=== PATIENT | female | born 1945 | race Caucasian/White ===

== ENCOUNTER 2022-01-06 17:52 | Observation (INO) | payer MEDICARE, BC ==
[2022-01-06] MEDS ORDERED: Sodium Chloride 0.9% 1000 ML 1,000 ML IV STA (18:07)
[2022-01-06] MEDS ORDERED: Sodium Chloride 0.9% 1000 ML 1,000 ML ONE (18:27)
--- NOTE | 2022-01-06 18:32 | ERPHSYRPT ---
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 She went walking on the [place] and found she had extremely low levels of energy and felt that she was getting sick. She has spent the last few days primarily laying down and sleeping excessively. She has had no nausea or vomiting but yesterday started diarrhea. She is also had a fever to 101.3 at home. She has had a cough especially in the morning but denies any sore throat the did find her blood pressure slightly elevated at home once she says she has had fever chills and sweats no nausea no vomiting but some diarrhea. (JERE CHIN) Allergies/Adverse Reactions: No Known Drug Allergies Allergy (Verified 01/06/22 18:14) Home Medications: Alendronate Sodium 70 mg [Fosamax 70 MG] 70 mg PO WEEKLY 01/06/22 [History] Travel Risk - International Travel Have you traveled outside of the country in past 3 weeks: No - Coronavirus Screening Are you exhibiting any of the following symptoms?: Yes Symptoms: Vomiting/Diarrhea - Vaccine Status Have you recieved a Covid-19 vaccination: Yes [employer]: [employer] - Vaccination Dates Date of 2cond Vaccination (if applicable): 12/2020 <JERE CHIN - Last Filed: 01/06/22 18:42> - Review of Systems Constitutional: Fever, Chills, Fatigue, Lethargy, Malaise, Night Sweats, Weakness Eyes: No Symptoms Ears, Nose, & Throat: No Symptoms Respiratory: Cough, No Dyspnea Cardiac: No Chest Pain, No Edema, No Syncope Abdominal/Gastrointestinal: Diarrhea, No Abdominal Pain, No Nausea, No Vomiting Genitourinary Symptoms: No Dysuria Musculoskeletal: No Back Pain, No Neck Pain Skin: No Rash Neurological: Lethargy, No Dizziness, No Focal Weakness, No Sensory Changes Psychological: No Symptoms Endocrine: No Symptoms All Other Systems: Reviewed and Negative <JERE CHIN Filed: 01/06/22 18:42> - Past Medical History Pertinent Past Medical History: No Other Medical History: OSTEOPENIA - Past Surgical History Past Surgical History: No - Social History Smoking Status: Never smoker Exposure to second hand smoke: No Drug Use: none Patient Lives Alone: No <ALINEMARKJERE Filed: 01/06/22 18:42> - Physical Exam General Appearance: mild distress, alert Eye Exam: PERRL/EOMI ENT Exam: normal ENT inspection, No pharyngeal erythema, No tonsillar exudate Neck Exam: supple, full range of motion, No meningismus Respiratory Exam: normal breath sounds, lungs clear, no respiratory distress Cardiovascular/Chest Exam: normal heart sounds, regular rate/rhythm, No murmur, No edema Gastrointestinal/Abdominal Exam: soft, non tender, no distention Extremity Exam: non-tender, normal range of motion, normal inspection, normal capillary refill Neurologic Exam: alert, oriented x 3, cooperative, blacking wheel tender II-XII nml as tested, normal mood/affect, sensation nml, No motor deficits Skin Exam: normal color, warm, dry, No rash SpO2 Interpretation: normal SpO2: 97 O2 Delivery: Room Air <ALINEMARKJERE Filed: 01/06/22 18:42> - Nursing Vital Signs Nursing Vital Signs: Initial Vital Signs Temperature 98.4 F 01/06/22 17:58 Pulse Rate 71 01/06/22 17:58 Blood Pressure 150/80 01/06/22 17:58 O2 Sat by Pulse Oximetry 97 01/06/22 17:58 Pain Scale Pain Intensity 0 - Course Nursing assessment & vital signs reviewed: Yes EKG Interpreted by Me: RATE (68), Sinus Rhythm, NORMAL AXIS, NORMAL INTERVALS, NORMAL QRS, NORMAL ST-T - Radiology Exams Chest X-ray Interpretation: Interpreted by me, Other (No definite acute processes identified) <GIUSEPPEJERE - Last Filed: 01/06/22 18:42> Ordered Tests: Active Orders 24 hr Category Date Time Status EKG-ER Only STAT Care 01/06/22 18:07 Active IV Insertion STAT Care 01/06/22 18:07 Active ABDOMEN AND PELVIS W CONTRAST [CT] Stat Exams 01/06/22 18:07 Taken CHEST 1 VIEW (PORTABLE) Stat Exams 01/06/22 18:45 Taken AMYLASE Stat Lab 01/06/22 18:35 Completed BLOOD CULTURE Stat Lab 01/06/22 18:37 Received CBC W DIFF Stat Lab 01/06/22 18:35 Results CMP Stat Lab 01/06/22 18:35 Completed CULTURE,URINE Stat Lab 01/06/22 18:16 Received LIPASE Stat Lab 01/06/22 18:35 Completed Lactic Acid Stat Lab 01/06/22 18:23 Completed Manual Differential NC Stat Lab 01/06/22 18:35 Results [place] Screen Stat Lab 01/06/22 18:37 Completed PROCALCITONIN Stat Lab 01/06/22 18:37 Completed PROTIME WITH INR Stat Lab 01/06/22 18:35 Completed Pathologist Review Stat Lab 01/06/22 18:35 Results TROPONIN Q3H Lab 01/06/22 18:35 Completed TROPONIN Q3H Lab 01/06/22 21:15 Ordered TROPONIN Q3H Lab 01/07/22 00:15 Ordered TROPONIN Q3H Lab 01/07/22 03:15 Ordered TROPONIN Q3H Lab 01/07/22 06:15 Ordered Transfer Order Routine Transfer 01/06/22 Ordered Medication Summary Discontinued Medications Generic Name Dose Route Start Last Admin Trade Name Sacha PRN Reason Stop Dose Admin Sodium Chloride 1,000 mls @ 999 mls/hr 01/06/22 18:07 01/06/22 18:30 Sodium Chloride 0.9% 1000 Ml IV 01/06/22 19:07 999 mls/hr .Q1H1M STA Administration Sodium Chloride Confirm 01/06/22 18:27 Sodium Chloride 0.9% 1000 Ml Administered 01/06/22 18:28 Dose 1,000 mls @ ud .ROUTE .STK-MED ONE Lab/Rad Data: Laboratory Result Diagrams 01/06/22 18:35 01/06/22 18:35 Laboratory Results 01/06/22 01/06/22 01/06/22 Range/Units 18:37 18:37 18:35 WBC (4.0-10.5) K/mm3 RBC (4.1-5.4) M/mm3 Hgb (12.0-16.0) gm/dl Hct (35-47) % MCV (78-100) fl MCH (26-32) pg MCHC (32-36) g/dl RDW (11.5-14.0) % Plt Count (150-450) K/mm3 MPV (7.5-11.0) fl Segmented Neutrophils (36.0-66.0) % Band Neutrophils (0.0-2.0) % Lymphocytes (Manual) (24-44) % Monocytes (Manual) (0.0-12.0) % Atypical Lymphocytes % Platelet Estimate (NORMAL) RBC Morphology Smear Path Review PT (9.4-12.5) SECONDS INR (0.8-3.0) Sodium (137-145) mmol/L Potassium (3.5-5.1) mmol/L Chloride (98-107) mmol/L Carbon Dioxide (22-30) mmol/L Anion Gap (5-15) MEQ/L BUN (7-17) mg/dL Creatinine (0.52-1.04) mg/dL Estimated GFR ML/MIN Glucose (74-106) mg/dL Lactic Acid (0.4-2.0) Calcium (8.4-10.2) mg/dL Total Bilirubin (0.2-1.3) mg/dL AST (14-36) U/L ALT (0-35) U/L Alkaline Phosphatase (38-126) U/L Troponin I < 0.012 (0.000-0.034) ng/mL Serum Total Protein (6.3-8.2) g/dL Albumin (3.5-5.0) g/dL Amylase (30-110) U/L Lipase (23-300) U/L Procalcitonin 0.504 H (0.030-0.080) ng/mL Urinalys Dipstick Clnc Urine Color (YELLOW) Urine Appearance (CLEAR) Urine pH (5-6) Ur Specific [place] (1.005-1.025) POC Urine Protein Conf (Negative) Urine Ketones (NEGATIVE) Urine Nitrite (NEGATIVE) Urine Bilirubin (NEGATIVE) Urine Urobilinogen (0-1) mg/dL Urine Leukocytes (NEGATIVE) Urine WBC (Auto) (0-5) /HPF Urine RBC (Auto) (0-2) /HPF U Epithel Cells (Auto) (FEW) /HPF Urine Bacteria (Auto) (NEGATIVE) /HPF Urine RBC (0-5) Emmanuel/ul Other Casts (Auto) (NEGATIVE) /LPF Urine Mucus (Auto) (NEGATIVE) /HPF Ur Culture Indicated? Urine Glucose (NEGATIVE) mg/dL Monoscreen NEGATIVE (Negative) Influenza Type A Ag (NEGATIVE) Influenza Type B Ag (NEGATIVE) RSV (PCR) (Negative) SARS-CoV-2 (PCR) (NEGATIVE) 01/06/22 01/06/22 01/06/22 Range/Units 18:35 18:35 18:35 WBC 2.2 L (4.0-10.5) K/mm3 RBC 4.49 (4.1-5.4) M/mm3 Hgb 14.3 (12.0-16.0) gm/dl Hct 42.4 (35-47) % MCV 94.4 (78-100) fl MCH 31.8 (26-32) pg MCHC 33.7 (32-36) g/dl RDW 12.1 (11.5-14.0) % Plt Count 41 L (150-450) K/mm3 MPV 11.7 H (7.5-11.0) fl Segmented Neutrophils 45 (36.0-66.0) % Band Neutrophils 27 H (0.0-2.0) % Lymphocytes (Manual) 21 L (24-44) % Monocytes (Manual) 4 (0.0-12.0) % Atypical Lymphocytes 3 % Platelet Estimate DECREASED (NORMAL) RBC Morphology NORMAL Smear Path Review Pending PT 11.7 (9.4-12.5) SECONDS INR 0.99 (0.8-3.0) Sodium 136 L (137-145) mmol/L Potassium 4.8 (3.5-5.1) mmol/L Chloride 99 (98-107) mmol/L Carbon Dioxide 30 (22-30) mmol/L Anion Gap 12.6 (5-15) MEQ/L BUN 22 H (7-17) mg/dL Creatinine 1.13 H (0.52-1.04) mg/dL Estimated GFR 50.0 ML/MIN Glucose 112 H (74-106) mg/dL Lactic Acid (0.4-2.0) Calcium 8.5 (8.4-10.2) mg/dL Total Bilirubin 0.60 (0.2-1.3) mg/dL AST 67 H (14-36) U/L ALT 31 (0-35) U/L Alkaline Phosphatase 62 (38-126) U/L Troponin I (0.000-0.034) ng/mL Serum Total Protein 6.7 (6.3-8.2) g/dL Albumin 3.9 (3.5-5.0) g/dL Amylase 52 (30-110) U/L Lipase 194 (23-300) U/L Procalcitonin (0.030-0.080) ng/mL Urinalys Dipstick Clnc Urine Color (YELLOW) Urine Appearance (CLEAR) Urine pH (5-6) Ur Specific [place] (1.005-1.025) POC Urine Protein Conf (Negative) Urine Ketones (NEGATIVE) Urine Nitrite (NEGATIVE) Urine Bilirubin (NEGATIVE) Urine Urobilinogen (0-1) mg/dL Urine Leukocytes (NEGATIVE) Urine WBC (Auto) (0-5) /HPF Urine RBC (Auto) (0-2) /HPF U Epithel Cells (Auto) (FEW) /HPF Urine Bacteria (Auto) (NEGATIVE) /HPF Urine RBC (0-5) Emmanuel/ul Other Casts (Auto) (NEGATIVE) /LPF Urine Mucus (Auto) (NEGATIVE) /HPF Ur Culture Indicated? Urine Glucose (NEGATIVE) mg/dL Monoscreen (Negative) Influenza Type A Ag (NEGATIVE) Influenza Type B Ag (NEGATIVE) RSV (PCR) (Negative) SARS-CoV-2 (PCR) (NEGATIVE) 01/06/22 01/06/22 01/06/22 Range/Units 18:24 18:23 18:16 WBC (4.0-10.5) K/mm3 RBC (4.1-5.4) M/mm3 Hgb (12.0-16.0) gm/dl Hct (35-47) % MCV (78-100) fl MCH (26-32) pg MCHC (32-36) g/dl RDW (11.5-14.0) % Plt Count (150-450) K/mm3 MPV (7.5-11.0) fl Segmented Neutrophils (36.0-66.0) % Band Neutrophils (0.0-2.0) % Lymphocytes (Manual) (24-44) % Monocytes (Manual) (0.0-12.0) % Atypical Lymphocytes % Platelet Estimate (NORMAL) RBC Morphology Smear Path Review PT (9.4-12.5) SECONDS INR (0.8-3.0) Sodium (137-145) mmol/L Potassium (3.5-5.1) mmol/L Chloride (98-107) mmol/L Carbon Dioxide (22-30) mmol/L Anion Gap (5-15) MEQ/L BUN (7-17) mg/dL Creatinine (0.52-1.04) mg/dL Estimated GFR ML/MIN Glucose (74-106) mg/dL Lactic Acid 1.2 (0.4-2.0) Calcium (8.4-10.2) mg/dL Total Bilirubin (0.2-1.3) mg/dL AST (14-36) U/L ALT (0-35) U/L Alkaline Phosphatase (38-126) U/L Troponin I (0.000-0.034) ng/mL Serum Total Protein (6.3-8.2) g/dL Albumin (3.5-5.0) g/dL Amylase (30-110) U/L Lipase (23-300) U/L Procalcitonin (0.030-0.080) ng/mL Urinalys Dipstick Clnc MAIN LAB Urine Color YELLOW (YELLOW) Urine Appearance CLEAR (CLEAR) Urine pH 5.5 (5-6) Ur Specific [place] 1.015 (1.005-1.025) POC Urine Protein Conf 30 (Negative) Urine Ketones NEGATIVE (NEGATIVE) Urine Nitrite NEGATIVE (NEGATIVE) Urine Bilirubin NEGATIVE (NEGATIVE) Urine Urobilinogen 0.2 (0-1) mg/dL Urine Leukocytes NEGATIVE (NEGATIVE) Urine WBC (Auto) 3-5 (0-5) /HPF Urine RBC (Auto) 0-2 (0-2) /HPF U Epithel Cells (Auto) NONE (FEW) /HPF Urine Bacteria (Auto) NONE SEEN (NEGATIVE) /HPF Urine RBC SMALL (0-5) Emmanuel/ul Other Casts (Auto) 2-5 (NEGATIVE) /LPF Urine Mucus (Auto) SLIGHT (NEGATIVE) /HPF Ur Culture Indicated? YES Urine Glucose NEGATIVE (NEGATIVE) mg/dL Monoscreen (Negative) Influenza Type A Ag NEGATIVE (NEGATIVE) Influenza Type B Ag NEGATIVE (NEGATIVE) RSV (PCR) NEGATIVE (Negative) SARS-CoV-2 (PCR) NEGATIVE (NEGATIVE) - Progress Progress: unchanged <ALINEMARKJERE - Last Filed: 01/06/22 18:42> - Progress Counseled pt/family regarding: lab results, diagnosis, need for follow-up, rad r esults <AV ALFRED - Last Filed: 01/06/22 20:44> - Progress Progress Note: 01/06/22 20:06 CAT scan of the abdomen pelvis without contrast shows no acute abdominal or pelvic abnormality. 01/06/22 20:36 Medical decision making: This patient has leukopenia and thrombocytopenia. She has malaise and is fatigued. She now reports that mid December 2021 she had a tick bite on her left posterior calf. We will order a Lyme's test. We will place her on doxycycline if Lyme test results positive. We will repeat labs in the morning. I spoke with Dr. Herr and we will place her in observation. He wishes to hold any antibiotics at this time. 01/06/22 20:40 (AV ALFRED) - Departure Departure Disposition: Home Critical Care Time: No <JERE CHIN - Last Filed: 01/06/22 18:42> - Departure Departure Disposition: Observation <AV ALFRED - Last Filed: 01/06/22 20:44> - Departure Clinical Impression: Diarrhea, Leukopenia, Thrombocytopenia Condition: Stable Referrals: JOSE F SANDHU NP [Primary Care Provider] - Follow up/PCP as directed
[2022-01-06 18:41] LABS: Hematocrit 42.4 % (35-47); Hemoglobin 14.3 gm/dl (12.0-16.0); Mean Cell Volume 94.4 fl (78-100); Mean Corpuscular Hemoglobin 31.8 pg (26-32); Mean Corpuscular Hgb Concent. 33.7 g/dl (32-36); Mean Platelet Volume 11.7 fl (7.5-11.0); Platelet Count 41 K/mm3 (150-450); Red Blood Count 4.49 M/mm3 (4.1-5.4); Red Cell Distribution Width 12.1 % (11.5-14.0); White Blood Count 2.2 K/mm3 (4.0-10.5)
[2022-01-06 18:49] LABS: Mucus SLIGHT /HPF (NEGATIVE); RBC 0-2 /HPF (0-2)
[2022-01-06 18:50] LABS: Appearance CLEAR (CLEAR); Bacteria NONE SEEN /HPF (NEGATIVE); Bilirubin NEGATIVE (NEGATIVE); Dipstick done @ ? MAIN LAB; Glucose NEGATIVE (NEGATIVE); Ketones NEGATIVE (NEGATIVE); Nitrite NEGATIVE (NEGATIVE); Ph 5.5 (5-6); Protein,Urine Dip 30 (Negative); RBC SMALL Ery/ul (0-5); Specific Gravity 1.015 (1.005-1.025); Urine Cultured Indicated? YES; Urobilinogen 0.2 mg/dL (0-1)
[2022-01-06 18:58] LABS: INR 0.99 (0.8-3.0); PROTIME 11.7 SECONDS (9.4-12.5)
[2022-01-06 19:02] LABS: ALBUMIN 3.9 g/dL (3.5-5.0); ANION GAP 12.6 MEQ/L (5-15); BILIRUBIN,TOTAL 0.6 mg/dL (0.2-1.3); Calcium 8.5 mg/dL (8.4-10.2); Creatinine 1 1.13 mg/dL (0.52-1.04); Potassium 4.8 mmol/L (3.5-5.1); Total Protein 6.7 g/dL (6.3-8.2)
[2022-01-06 19:19] LABS: INFLUENZA A NEGATIVE (NEGATIVE); INFLUENZA B NEGATIVE (NEGATIVE); RESPIRATORY SYNCTIAL VIRUS NEGATIVE (Negative); SARS-CoV-2 Xpert Express NEGATIVE (NEGATIVE)
[2022-01-06 20:24] LABS: ATYPICAL LYMPHS 3 %; BAND 27 % (0.0-2.0); Lymphocytes 21 % (24-44); Monocyte 4 % (0.0-12.0); Neutrophils 45 % (36.0-66.0); Platelet Estimate DECREASED (NORMAL); Total Cells Counted 100
[2022-01-06] MEDS ORDERED: TYLENOL 325 MG PO PRN (21:23)
[2022-01-06] MEDS ORDERED: Zofran 4 MG/2 ML VIAL IV PRN (21:23)
[2022-01-07 04:54] LABS: Hematocrit 37.2 % (35-47); Hemoglobin 12.6 gm/dl (12.0-16.0); Mean Cell Volume 94.9 fl (78-100); Mean Corpuscular Hemoglobin 32.1 pg (26-32); Mean Corpuscular Hgb Concent. 33.9 g/dl (32-36); Platelet Count 44 K/mm3 (150-450); Red Blood Count 3.92 M/mm3 (4.1-5.4); Red Cell Distribution Width 12.1 % (11.5-14.0); White Blood Count 2.2 K/mm3 (4.0-10.5)
[2022-01-07 05:24] LABS: ALBUMIN 3.1 g/dL (3.5-5.0); ALKALINE PHOSPHATASE 44 U/L (38-126); ANION GAP 9.3 MEQ/L (5-15); BLOOD UREA NITROGEN 17 mg/dL (7-17); CHLORIDE 105 mmol/L (98-107); Calcium 7.5 mg/dL (8.4-10.2); Carbon Dioxide 23 mmol/L (22-30); Creatinine 1 0.85 mg/dL (0.52-1.04); EST GLOMERULAR FILTRATION RATE > 60.0 ML/MIN; Glucose 85 mg/dL (74-106); SGOT/AST 59 U/L (14-36); SGPT/ALT 26 U/L (0-35); SODIUM 133 mmol/L (137-145); Total Protein 5.8 g/dL (6.3-8.2)
[2022-01-07 08:10] LABS: Lymphocytes 40 % (24-44); Monocyte 15 % (0.0-12.0); Neutrophils 45 % (36.0-66.0); Total Cells Counted 100
[2022-01-07 08:33] LABS: Platelet Estimate DECREASED (NORMAL)
--- NOTE | 2022-01-07 08:40 | XRAY ---
Indication: Fever, nausea, vomiting, and diarrhea. Multiple contiguous axial images obtained through the abdomen and pelvis using 80 cc Isovue 370 contrast. Comparison: None Lung bases demonstrates mild subsegmental atelectasis/scarring. No infiltrate or effusion. Heart not enlarged. Small hiatal hernia. Noncontrasted stomach and bowel loops appear nonobstructed. Nonvisualization appendix. No free fluid/air. Tiny splenic calcified granulomas. Remaining liver, gallbladder, pancreas, spleen, adrenal glands, kidneys, ureters, bladder, and uterus are unremarkable. Mild scattered aortoiliac calcifications. No AAA or pathologic retroperitoneal lymphadenopathy. Osseous structures intact. No ventral or inguinal hernias. Impression: 1. Small hiatal hernia and old granulomatous disease. 2. Remaining CT abdomen/pelvis with contrast exam is negative. Comment: Preliminary interpretation made by C. No critical discrepancy.
--- NOTE | 2022-01-07 08:42 | XRAY ---
Indication: Fever, cough, nausea, and vomiting. Comparison: None Portable chest clear with incidental mild left hemidiaphragm elevation. Heart not enlarged with tortuous descending aorta. Bony thorax intact with mild osteopenia and degenerative changes. Impression: Nonacute chest with chronic features.
[2022-01-07] MEDS: Vibramycin 100 MG PO SCH ×2 (12:14→18:12)
[2022-01-07 16:30] LABS: 027 TOX PROD PRESUMPTIVE NEGATIVE (NEGATIVE); TOXIGENIC C. DIFF ORG NEGATIVE (NEGATIVE)
--- NOTE | 2022-01-07 18:13 | PCM.HP ---
History of Present Illness - Chief Complaint Chief Complaint: fevr and weakness for 2 weeks History of Present Illness: is a 76 year old female. who presents with a complaint of being sick since Friday. She went walking on the campus and found she had extremely low levels of energy and felt that she was getting sick. She has spent the last few days primarily laying down and sleeping excessively. She has had no nausea or vomiting but yesterday started diarrhea. She is also had a fever to 101.3 at home. She has had a cough especially in the morning but denies any sore throat the did find her blood pressure slightly elevated at home once she says she has had fever chills and sweats no nausea no vomiting but some diarrhea. - Review of Systems Constitutional: Fever, Weakness, No Chills Eyes: No Symptoms Ears, Nose, & Throat: No Symptoms Respiratory: No Cough, No Short Of Breath Cardiac: No Chest Pain, No Edema, No Syncope Abdominal/Gastrointestinal: No Abdominal Pain, No Nausea, No Vomiting, No Diarrhea Genitourinary Symptoms: No Dysuria Musculoskeletal: No Back Pain, No Neck Pain Skin: No Rash Neurological: No Dizziness, No Focal Weakness, No Sensory Changes Psychological: No Symptoms Endocrine: No Symptoms Hematologic/Lymphatic: No Symptoms Immunological/Allergic: No Symptoms Medications & Allergies Home Medications: Home Medication List Simvastatin 20Mg [Zocor 20Mg] 20 mg PO HS 01/07/22 [History Confirmed 01/07/22] Allergies/Adverse Reactions: Allergies Allergy/AdvReac Type Severity Reaction Status Date / Time No Known Drug Allergies Allergy Verified 01/06/22 22:13 - Past Medical History Past Medical History: Yes Neurological History: No Pertinent History ENT History: No Pertinent History Cardiac History: High Cholesterol Respiratory History: No Pertinent History Endocrine Medical History: No Pertinent History Musculoskelatal History: No Pertinent History GI Medical History: No Pertinent History History: No Pertinent History Pyscho-Social History: No Pertinent History Reproductive Disorders: No Pertinent History Comment: OSTEOPENIA - Female History Are you now?: No - Past Surgical History Past Surgical History: No Neuro Surgical History: No Pertinent History Cardiac History: No Pertinent History Respiratory Surgery: No Pertinent History GI Surgical History: No Pertinent History Genitourinary Surgical Hx: No Pertinent History Musculskeletal Surgical Hx: No Pertinent History Female Surgical History: No Pertinent History - Social History Smoking Status: Never smoker Exposure to second hand smoke: Yes (30 years ago) Alcohol: None Drug Use: none - Physical Exam Vital Signs: Vital Signs - 24 hr Temp Pulse Resp BP Pulse Ox 01/07/22 16:00 97.3 F 57 L 16 136/65 95 01/07/22 12:00 97.3 F 58 L 16 129/65 93 L 01/07/22 08:00 97.5 F 60 16 135/65 95 01/07/22 02:13 97.7 F 01/06/22 23:49 104.2 F 01/06/22 22:17 103.1 F 72 18 143/63 93 L 01/06/22 18:46 97 General Appearance: no apparent distress, alert Neurologic Exam: alert, oriented x 3, cooperative, normal mood/affect, nml cerebellar function, nml station & gait, sensation nml, No motor deficits Eye Exam: PERRL/EOMI, eyes nml inspection Ears, Nose, Throat Exam: normal ENT inspection, TMs normal, pharynx normal, moist mucous membranes Neck Exam: normal inspection, non-tender, supple, full range of motion Respiratory Exam: normal breath sounds, lungs clear, No respiratory distress Cardiovascular Exam: regular rate/rhythm, normal heart sounds, normal peripheral pulses Gastrointestinal/Abdomen Exam: soft, normal bowel sounds, No tenderness, No mass Back Exam: normal inspection, normal range of motion, No CVA tenderness, No vertebral tenderness Extremity Exam: normal inspection, normal range of motion, pelvis stable Skin Exam: normal color, warm, dry, No rash Lymphatic Exam: No adenopathy Results - Labs Lab/Micro Results: Lab Results-Last 24 Hours 01/06/22 01/06/22 01/06/22 Range/Units 15:00 18:16 18:23 WBC (4.0-10.5) K/mm3 RBC (4.1-5.4) M/mm3 Hgb (12.0-16.0) gm/dl Hct (35-47) % MCV (78-100) fl MCH (26-32) pg MCHC (32-36) g/dl RDW (11.5-14.0) % Plt Count (150-450) K/mm3 MPV (7.5-11.0) fl Segmented Neutrophils (36.0-66.0) % Band Neutrophils (0.0-2.0) % Lymphocytes (Manual) (24-44) % Monocytes (Manual) (0.0-12.0) % Atypical Lymphocytes % Platelet Estimate (NORMAL) RBC Morphology Smear Path Review ESR (0-20) mm/hr PT (9.4-12.5) SECONDS INR (0.8-3.0) Sodium (137-145) mmol/L Potassium (3.5-5.1) mmol/L Chloride (98-107) mmol/L Carbon Dioxide (22-30) mmol/L Anion Gap (5-15) MEQ/L BUN (7-17) mg/dL Creatinine (0.52-1.04) mg/dL Estimated GFR ML/MIN Glucose (74-106) mg/dL Lactic Acid 1.2 (0.4-2.0) Calcium (8.4-10.2) mg/dL Total Bilirubin (0.2-1.3) mg/dL AST (14-36) U/L ALT (0-35) U/L Alkaline Phosphatase (38-126) U/L Lactate Dehydrogenase (120-246) U/L Troponin I (0.000-0.034) ng/mL Serum Total Protein (6.3-8.2) g/dL Albumin (3.5-5.0) g/dL Amylase (30-110) U/L Lipase (23-300) U/L Procalcitonin (0.030-0.080) ng/mL Urinalys Dipstick Clnc MAIN LAB Urine Color YELLOW (YELLOW) Urine Appearance CLEAR (CLEAR) Urine pH 5.5 (5-6) Ur Specific [place] 1.015 (1.005-1.025) POC Urine Protein Conf 30 (Negative) Urine Ketones NEGATIVE (NEGATIVE) Urine Nitrite NEGATIVE (NEGATIVE) Urine Bilirubin NEGATIVE (NEGATIVE) Urine Urobilinogen 0.2 (0-1) mg/dL Urine Leukocytes NEGATIVE (NEGATIVE) Urine WBC (Auto) 3-5 (0-5) /HPF Urine RBC (Auto) 0-2 (0-2) /HPF U Epithel Cells (Auto) NONE (FEW) /HPF Urine Bacteria (Auto) NONE SEEN (NEGATIVE) /HPF Urine RBC SMALL (0-5) Emmanuel/ul Other Casts (Auto) 2-5 (NEGATIVE) /LPF Urine Mucus (Auto) SLIGHT (NEGATIVE) /HPF Ur Culture Indicated? YES Urine Glucose NEGATIVE (NEGATIVE) mg/dL C. difficile Screen NEGATIVE (NEGATIVE) C.difficile 027-NAP1-B1 PRESUMPTIVE NEGATIVE (NEGATIVE) Monoscreen (Negative) Influenza Type A Ag (NEGATIVE) Influenza Type B Ag (NEGATIVE) RSV (PCR) (Negative) SARS-CoV-2 (PCR) (NEGATIVE) 01/06/22 01/06/22 01/06/22 Range/Units 18:24 18:35 18:35 WBC 2.2 L (4.0-10.5) K/mm3 RBC 4.49 (4.1-5.4) M/mm3 Hgb 14.3 (12.0-16.0) gm/dl Hct 42.4 (35-47) % MCV 94.4 (78-100) fl MCH 31.8 (26-32) pg MCHC 33.7 (32-36) g/dl RDW 12.1 (11.5-14.0) % Plt Count 41 L (150-450) K/mm3 MPV 11.7 H (7.5-11.0) fl Segmented Neutrophils 45 (36.0-66.0) % Band Neutrophils 27 H (0.0-2.0) % Lymphocytes (Manual) 21 L (24-44) % Monocytes (Manual) 4 (0.0-12.0) % Atypical Lymphocytes 3 % Platelet Estimate DECREASED (NORMAL) RBC Morphology NORMAL Smear Path Review Pending ESR (0-20) mm/hr PT (9.4-12.5) SECONDS INR (0.8-3.0) Sodium 136 L (137-145) mmol/L Potassium 4.8 (3.5-5.1) mmol/L Chloride 99 (98-107) mmol/L Carbon Dioxide 30 (22-30) mmol/L Anion Gap 12.6 (5-15) MEQ/L BUN 22 H (7-17) mg/dL Creatinine 1.13 H (0.52-1.04) mg/dL Estimated GFR 50.0 ML/MIN Glucose 112 H (74-106) mg/dL Lactic Acid (0.4-2.0) Calcium 8.5 (8.4-10.2) mg/dL Total Bilirubin 0.60 (0.2-1.3) mg/dL AST 67 H (14-36) U/L ALT 31 (0-35) U/L Alkaline Phosphatase 62 (38-126) U/L Lactate Dehydrogenase (120-246) U/L Troponin I (0.000-0.034) ng/mL Serum Total Protein 6.7 (6.3-8.2) g/dL Albumin 3.9 (3.5-5.0) g/dL Amylase 52 (30-110) U/L Lipase 194 (23-300) U/L Procalcitonin (0.030-0.080) ng/mL Urinalys Dipstick Clnc Urine Color (YELLOW) Urine Appearance (CLEAR) Urine pH (5-6) Ur Specific [place] (1.005-1.025) POC Urine Protein Conf (Negative) Urine Ketones (NEGATIVE) Urine Nitrite (NEGATIVE) Urine Bilirubin (NEGATIVE) Urine Urobilinogen (0-1) mg/dL Urine Leukocytes (NEGATIVE) Urine WBC (Auto) (0-5) /HPF Urine RBC (Auto) (0-2) /HPF U Epithel Cells (Auto) (FEW) /HPF Urine Bacteria (Auto) (NEGATIVE) /HPF Urine RBC (0-5) Emmanuel/ul Other Casts (Auto) (NEGATIVE) /LPF Urine Mucus (Auto) (NEGATIVE) /HPF Ur Culture Indicated? Urine Glucose (NEGATIVE) mg/dL C. difficile Screen (NEGATIVE) C.difficile 027-NAP1-B1 (NEGATIVE) Monoscreen (Negative) Influenza Type A Ag NEGATIVE (NEGATIVE) Influenza Type B Ag NEGATIVE (NEGATIVE) RSV (PCR) NEGATIVE (Negative) SARS-CoV-2 (PCR) NEGATIVE (NEGATIVE) 01/06/22 01/06/22 01/06/22 Range/Units 18:35 18:35 18:37 WBC (4.0-10.5) K/mm3 RBC (4.1-5.4) M/mm3 Hgb (12.0-16.0) gm/dl Hct (35-47) % MCV (78-100) fl MCH (26-32) pg MCHC (32-36) g/dl RDW (11.5-14.0) % Plt Count (150-450) K/mm3 MPV (7.5-11.0) fl Segmented Neutrophils (36.0-66.0) % Band Neutrophils (0.0-2.0) % Lymphocytes (Manual) (24-44) % Monocytes (Manual) (0.0-12.0) % Atypical Lymphocytes % Platelet Estimate (NORMAL) RBC Morphology Smear Path Review ESR (0-20) mm/hr PT 11.7 (9.4-12.5) SECONDS INR 0.99 (0.8-3.0) Sodium (137-145) mmol/L Potassium (3.5-5.1) mmol/L Chloride (98-107) mmol/L Carbon Dioxide (22-30) mmol/L Anion Gap (5-15) MEQ/L BUN (7-17) mg/dL Creatinine (0.52-1.04) mg/dL Estimated GFR ML/MIN Glucose (74-106) mg/dL Lactic Acid (0.4-2.0) Calcium (8.4-10.2) mg/dL Total Bilirubin (0.2-1.3) mg/dL AST (14-36) U/L ALT (0-35) U/L Alkaline Phosphatase (38-126) U/L Lactate Dehydrogenase (120-246) U/L Troponin I < 0.012 (0.000-0.034) ng/mL Serum Total Protein (6.3-8.2) g/dL Albumin (3.5-5.0) g/dL Amylase (30-110) U/L Lipase (23-300) U/L Procalcitonin 0.504 H (0.030-0.080) ng/mL Urinalys Dipstick Clnc Urine Color (YELLOW) Urine Appearance (CLEAR) Urine pH (5-6) Ur Specific [place] (1.005-1.025) POC Urine Protein Conf (Negative) Urine Ketones (NEGATIVE) Urine Nitrite (NEGATIVE) Urine Bilirubin (NEGATIVE) Urine Urobilinogen (0-1) mg/dL Urine Leukocytes (NEGATIVE) Urine WBC (Auto) (0-5) /HPF Urine RBC (Auto) (0-2) /HPF U Epithel Cells (Auto) (FEW) /HPF Urine Bacteria (Auto) (NEGATIVE) /HPF Urine RBC (0-5) Emmanuel/ul Other Casts (Auto) (NEGATIVE) /LPF Urine Mucus (Auto) (NEGATIVE) /HPF Ur Culture Indicated? Urine Glucose (NEGATIVE) mg/dL C. difficile Screen (NEGATIVE) C.difficile 027-NAP1-B1 (NEGATIVE) Monoscreen (Negative) Influenza Type A Ag (NEGATIVE) Influenza Type B Ag (NEGATIVE) RSV (PCR) (Negative) SARS-CoV-2 (PCR) (NEGATIVE) 01/06/22 01/06/22 01/07/22 Range/Units 18:37 21:54 04:30 WBC 2.2 L (4.0-10.5) K/mm3 RBC 3.92 L (4.1-5.4) M/mm3 Hgb 12.6 (12.0-16.0) gm/dl Hct 37.2 (35-47) % MCV 94.9 (78-100) fl MCH 32.1 H (26-32) pg MCHC 33.9 (32-36) g/dl RDW 12.1 (11.5-14.0) % Plt Count 44 L (150-450) K/mm3 MPV 11.0 (7.5-11.0) fl Segmented Neutrophils 45 (36.0-66.0) % Band Neutrophils (0.0-2.0) % Lymphocytes (Manual) 40 (24-44) % Monocytes (Manual) 15 H (0.0-12.0) % Atypical Lymphocytes % Platelet Estimate DECREASED (NORMAL) RBC Morphology NORMAL Smear Path Review ESR (0-20) mm/hr PT (9.4-12.5) SECONDS INR (0.8-3.0) Sodium (137-145) mmol/L Potassium (3.5-5.1) mmol/L Chloride (98-107) mmol/L Carbon Dioxide (22-30) mmol/L Anion Gap (5-15) MEQ/L BUN (7-17) mg/dL Creatinine (0.52-1.04) mg/dL Estimated GFR ML/MIN Glucose (74-106) mg/dL Lactic Acid (0.4-2.0) Calcium (8.4-10.2) mg/dL Total Bilirubin (0.2-1.3) mg/dL AST (14-36) U/L ALT (0-35) U/L Alkaline Phosphatase (38-126) U/L Lactate Dehydrogenase (120-246) U/L Troponin I < 0.012 (0.000-0.034) ng/mL Serum Total Protein (6.3-8.2) g/dL Albumin (3.5-5.0) g/dL Amylase (30-110) U/L Lipase (23-300) U/L Procalcitonin (0.030-0.080) ng/mL Urinalys Dipstick Clnc Urine Color (YELLOW) Urine Appearance (CLEAR) Urine pH (5-6) Ur Specific [place] (1.005-1.025) POC Urine Protein Conf (Negative) Urine Ketones (NEGATIVE) Urine Nitrite (NEGATIVE) Urine Bilirubin (NEGATIVE) Urine Urobilinogen (0-1) mg/dL Urine Leukocytes (NEGATIVE) Urine WBC (Auto) (0-5) /HPF Urine RBC (Auto) (0-2) /HPF U Epithel Cells (Auto) (FEW) /HPF Urine Bacteria (Auto) (NEGATIVE) /HPF Urine RBC (0-5) Emmanuel/ul Other Casts (Auto) (NEGATIVE) /LPF Urine Mucus (Auto) (NEGATIVE) /HPF Ur Culture Indicated? Urine Glucose (NEGATIVE) mg/dL C. difficile Screen (NEGATIVE) C.difficile 027-NAP1-B1 (NEGATIVE) Monoscreen NEGATIVE (Negative) Influenza Type A Ag (NEGATIVE) Influenza Type B Ag (NEGATIVE) RSV (PCR) (Negative) SARS-CoV-2 (PCR) (NEGATIVE) 01/07/22 01/07/22 01/07/22 Range/Units 04:30 06:00 06:00 WBC (4.0-10.5) K/mm3 RBC (4.1-5.4) M/mm3 Hgb (12.0-16.0) gm/dl Hct (35-47) % MCV (78-100) fl MCH (26-32) pg MCHC (32-36) g/dl RDW (11.5-14.0) % Plt Count (150-450) K/mm3 MPV (7.5-11.0) fl Segmented Neutrophils (36.0-66.0) % Band Neutrophils (0.0-2.0) % Lymphocytes (Manual) (24-44) % Monocytes (Manual) (0.0-12.0) % Atypical Lymphocytes % Platelet Estimate (NORMAL) RBC Morphology Smear Path Review ESR 17 (0-20) mm/hr PT (9.4-12.5) SECONDS INR (0.8-3.0) Sodium 133 L (137-145) mmol/L Potassium 4.0 (3.5-5.1) mmol/L Chloride 105 (98-107) mmol/L Carbon Dioxide 23 (22-30) mmol/L Anion Gap 9.3 (5-15) MEQ/L BUN 17 (7-17) mg/dL Creatinine 0.85 (0.52-1.04) mg/dL Estimated GFR > 60.0 ML/MIN Glucose 85 (74-106) mg/dL Lactic Acid (0.4-2.0) Calcium 7.5 L (8.4-10.2) mg/dL Total Bilirubin 0.60 (0.2-1.3) mg/dL AST 59 H (14-36) U/L ALT 26 (0-35) U/L Alkaline Phosphatase 44 (38-126) U/L Lactate Dehydrogenase 412 H (120-246) U/L Troponin I (0.000-0.034) ng/mL Serum Total Protein 5.8 L (6.3-8.2) g/dL Albumin 3.1 L (3.5-5.0) g/dL Amylase (30-110) U/L Lipase (23-300) U/L Procalcitonin (0.030-0.080) ng/mL Urinalys Dipstick Clnc Urine Color (YELLOW) Urine Appearance (CLEAR) Urine pH (5-6) Ur Specific [place] (1.005-1.025) POC Urine Protein Conf (Negative) Urine Ketones (NEGATIVE) Urine Nitrite (NEGATIVE) Urine Bilirubin (NEGATIVE) Urine Urobilinogen (0-1) mg/dL Urine Leukocytes (NEGATIVE) Urine WBC (Auto) (0-5) /HPF Urine RBC (Auto) (0-2) /HPF U Epithel Cells (Auto) (FEW) /HPF Urine Bacteria (Auto) (NEGATIVE) /HPF Urine RBC (0-5) Emmanuel/ul Other Casts (Auto) (NEGATIVE) /LPF Urine Mucus (Auto) (NEGATIVE) /HPF Ur Culture Indicated? Urine Glucose (NEGATIVE) mg/dL C. difficile Screen (NEGATIVE) C.difficile 027-NAP1-B1 (NEGATIVE) Monoscreen (Negative) Influenza Type A Ag (NEGATIVE) Influenza Type B Ag (NEGATIVE) RSV (PCR) (Negative) SARS-CoV-2 (PCR) (NEGATIVE) Microbiology 01/06/22 18:16 Urine Culture - Preliminary Urine, Void NO GROWTH TO DATE - Radiology Impressions Radiology Exams & Impressions: Radiology Procedures Category Date Time Status ABDOMEN AND PELVIS W CONTRAST [CT] Stat Exams 01/06/22 18:07 Completed CHEST 1 VIEW (PORTABLE) Stat Exams 01/06/22 18:45 Completed CHEST W/WO CONTRAST [CT] Urgent Exams 01/07/22 17:22 Ordered Assessment/Plan (1) Thrombocytopenia Current Visit: Yes Status: Acute (2) Weakness Current Visit: Yes Status: Acute Code(s): R53.1 - WEAKNESS (3) Tick bite Current Visit: Yes Status: Acute Qualifiers: Encounter type: initial encounter Site of tick bite: unspecified site Qualified Code(s): W57.XXXA - Bitten or stung by nonvenomous insect and other nonvenomous arthropods, initial encounter Code(s): W57.XXXA - BIT/STUNG BY NONVENOM INSECT & OTH NONVENOM ARTHROPODS, INIT (4) Leukopenia Current Visit: Yes Status: Acute Qualifiers: Leukopenia type: unspecified Qualified Code(s): D72.819 - Decreased white blood cell count, unspecified Code(s): D72.819 - DECREASED WHITE BLOOD CELL COUNT, UNSPECIFIED
[2022-01-07] MEDS: Sodium Chloride 0.9% 1000 ML 1,000 ML IV SCH (19:10)
[2022-01-07] MEDS ORDERED: ZOCOR 20MG PO SCH (22:00)
[2022-01-08 05:03] LABS: Hematocrit 36.9 % (35-47); Hemoglobin 12.3 gm/dl (12.0-16.0); Mean Cell Volume 95.1 fl (78-100); Mean Corpuscular Hemoglobin 31.7 pg (26-32); Mean Corpuscular Hgb Concent. 33.3 g/dl (32-36); Mean Platelet Volume 10.3 fl (7.5-11.0); Platelet Count 59 K/mm3 (150-450); Red Blood Count 3.88 M/mm3 (4.1-5.4); Red Cell Distribution Width 12.2 % (11.5-14.0); White Blood Count 3.4 K/mm3 (4.0-10.5)
[2022-01-08 05:35] LABS: ALBUMIN 3.1 g/dL (3.5-5.0); ALKALINE PHOSPHATASE 47 U/L (38-126); ANION GAP 9.3 MEQ/L (5-15); BLOOD UREA NITROGEN 11 mg/dL (7-17); CHLORIDE 105 mmol/L (98-107); Calcium 7.5 mg/dL (8.4-10.2); Carbon Dioxide 28 mmol/L (22-30); Creatinine 1 0.84 mg/dL (0.52-1.04); EST GLOMERULAR FILTRATION RATE > 60.0 ML/MIN; Glucose 82 mg/dL (74-106); LDH-LACTATE DEHYDROGENASE 369 U/L (120-246); Potassium 4.4 mmol/L (3.5-5.1); SGOT/AST 57 U/L (14-36); SGPT/ALT 24 U/L (0-35); SODIUM 137 mmol/L (137-145); Total Protein 5.8 g/dL (6.3-8.2)
[2022-01-08 05:48] LABS: Erythrocyte Sedimentation Rate 17 mm/hr (0-20)
[2022-01-08 05:57] LABS: Slide Review YES
[2022-01-08] MEDS: Sodium Chloride 0.9% 1000 ML 1,000 ML IV SCH (07:11)
[2022-01-08] MEDS: Vibramycin 100 MG PO SCH (07:14)
[2022-01-08 07:41] VITALS: BP 134/72; PULSE 61; O2SAT 93
--- NOTE | 2022-01-08 08:43 | XRAY ---
Indication: Fever, leukopenia, and thrombocytopenia. Non-Hodgkin's lymphoma. Multiple contiguous axial images obtained through the chest prior to and following 80 cc Isovue 370 contrast as ordered. Comparison: None Lungs demonstrates mild diffuse scattered fibrosis/scarring bilaterally, mild bilateral dependent atelectasis, and small right lower lobe calcified granuloma. No suspicious pulmonary mass, infiltrate, or effusion. Heart is not enlarged. Aorta is normal in course and caliber. No pathologic mediastinal/hilar lymphadenopathy. Small hiatal hernia. Bony thorax intact with minimal degenerative changes throughout the spine. No pathologic axillary lymphadenopathy. Limited upper abdomen demonstrates mild fatty liver and tiny splenic calcified granulomas. Impression: 1. Small hiatal hernia, fatty liver, degenerative spondylosis, and old granulomatous disease. 2. Remaining CT chest with and without contrast exam is negative.
--- NOTE | 2022-01-09 21:35 | PCM.DS ---
Discharge Summary Date of Admission: 01/06/22 21:18 Admitting Physician: KOREY REYNOSO Primary Care Provider: JOSE F SANDHU Allergies Allergies No Known Drug Allergies Allergy (Verified 01/06/22 22:13) Hospital Summary - Hospital Course Hospital Course: Chief Complaint Diagnosis fevr and weakness for 2 weeks Allergies Allergy/AdvReac Type Severity Reaction Status Date / Time No Known Drug Allergies Allergy Verified 01/06/22 22:13 Home Medications Medication Instructions Recorded Confirmed Last Taken Type Simvastatin 20Mg [Zocor 20Mg] 20 mg PO HS 01/07/22 01/07/22 01/06/22 History Current Medications Discontinued Medications Generic Name Dose Route Start Last Admin Trade Name Freq PRN Reason Stop Dose Admin Acetaminophen 650 mg 01/06/22 21:23 01/06/22 23:47 Acetaminophen 325 Mg Tablet PO 02/05/22 21:22 650 mg Q4H PRN PRN Administration PAIN, FEVER, HEADACHE Doxycycline Hyclate 100 mg 01/07/22 12:00 01/08/22 07:14 Doxycycline Hyclate 100 Mg Tablet PO 02/06/22 11:59 100 mg BIDWM CASIE Administration Sodium Chloride 1,000 mls @ 999 mls/hr 01/06/22 18:07 01/06/22 18:30 Sodium Chloride 0.9% 1000 Ml IV 01/06/22 19:07 999 mls/hr .Q1H1M STA Administration Sodium Chloride Confirm 01/06/22 18:27 Sodium Chloride 0.9% 1000 Ml Administered 01/06/22 18:28 Dose 1,000 mls @ ud .ROUTE .STK-MED ONE Sodium Chloride 1,000 mls @ 50 mls/hr 01/06/22 21:23 01/08/22 07:11 Sodium Chloride 0.9% 1000 Ml IV 02/05/22 21:22 Not Given .Q20H CASIE Ondansetron HCl 4 mg 01/06/22 21:23 Ondansetron Hcl 4 Mg/2 Ml Vial IV 02/05/22 21:22 Q6H PRN PRN NAUSEA/VOMITING Simvastatin 20 mg 01/07/22 22:00 01/07/22 21:05 Simvastatin 20 Mg Tablet PO 02/06/22 21:59 20 mg HS CASIE Administration Intake & Output (Last 24 hours) 04/0401/08/22 01/09/22 01/10/22 11:59 11:59 11:59 11:59 Intake Total 240 2133 Output Total 1800 Balance 240 333 Weight 64 kg 64.1 kg Laboratory Results (Last 24 hours) 01/06/22 18:35 Smear Path Review - Vitals & Intake/Output Vital Signs: Vital Signs Temperature 97.9 F 01/08/22 07:40 Pulse Rate 61 01/08/22 07:40 Respiratory Rate 16 01/08/22 07:40 Blood Pressure 134/72 01/08/22 07:40 O2 Sat by Pulse Oximetry 93 L 01/08/22 07:40 Intake & Output: Intake & Output 01/07/22 01/08/22 01/09/22 01/10/22 11:59 11:59 11:59 11:59 Intake Total 240 2133 Output Total 1800 Balance 240 333 Weight 64 kg 64.1 kg - Lab Result Diagrams: 01/08/22 04:50 01/08/22 04:50 Lab Results-Last 24 Hrs: Lab Results-Last 24 Hours 01/06/22 Range/Units 18:35 Smear Path Review Micro Results-Entire Visit: Microbiology 01/06/22 18:37 Blood Culture - Preliminary Blood NO GROWTH TO DATE 01/06/22 18:35 Blood Culture - Preliminary Blood NO GROWTH TO DATE 01/06/22 18:16 Urine Culture - Final Urine, Void NO GROWTH Discharge Exam General Appearance: no apparent distress, alert Neurologic Exam: alert, oriented x 3, cooperative, normal mood/affect, nml c erebellar function, sensation nml, No motor deficits Eye Exam: PERRL, EOMI, eyes nml inspection Ears, Nose, Throat Exam: normal ENT inspection, pharynx normal, moist mucous membranes Neck Exam: normal inspection, non-tender, supple, full range of motion Respiratory Exam: normal breath sounds, lungs clear, No respiratory distress Cardiovascular Exam: regular rate/rhythm, normal heart sounds Gastrointestinal/Abdomen Exam: soft, No tenderness, No mass Pelvic Exam: deferred Rectal Exam: deferred Back Exam: normal inspection, normal range of motion, No CVA tenderness, No ve rtebral tenderness Extremity Exam: normal inspection, normal range of motion Skin Exam: normal color, warm, dry Final Diagnosis/Problem List - Final Discharge Diagnosis/Problem (1) Tick bite Status: Acute Code(s): W57.XXXA - BIT/STUNG BY NONVENOM INSECT & OTH NONVENOM ARTHROPODS, INIT (2) Thrombocytopenia Status: Acute (3) Weakness Status: Resolved Code(s): R53.1 - WEAKNESS (4) Leukopenia Status: Acute Code(s): D72.819 - DECREASED WHITE BLOOD CELL COUNT, UNSPECIFIED - Discharge Discharge Date: 01/08/22 Disposition: Home, Self-Care Condition: Stable Prescriptions: Continue Simvastatin 20Mg [Zocor 20Mg] 20 mg PO HS Instructions: Insect Bites and Stings (DC) Follow up with: KOREY REYNOSO MD [ACTIVE STAFF] - 01/15/22 2:30 pm
== END 2022-01-08 09:35 | disposition home or self-care (01) ==
LOC: ED 17:52 → MED SURG 21:18
PROVIDERS: ADMIT General Practice; ATTEND General Practice
DX: D69.6 Thrombocytopenia, unspecified (principal); R53.1 Weakness; W57.XXXD Bitten or stung by nonvenomous insect and other nonvenomous arthropods, subsequent encounter; D72.819 Decreased white blood cell count, unspecified; E78.00 Pure hypercholesterolemia, unspecified; R50.9 Fever, unspecified; R19.7 Diarrhea, unspecified; Z79.899 Other long term (current) drug therapy; Z20.828 Contact with and (suspected) exposure to other viral communicable diseases
CPT/HCPCS: 0241U; 36000; 36415; 71045; 71270; 74177; 80053; 81015; 82150; 83605; 83615; 83690; 84145; 84484; 85025; 85027; 85610; 85652; 86308; 86618; 87040; 87045; 87046; 87086; 87493; 93005; 96360; 99284; G0378; A9270-GY

== ENCOUNTER 2023-08-16 11:17 | Emergency (ER) | payer MEDICARE, BC ==
[2023-08-16 11:34] VITALS: BP 171/81; PULSE 55; RESP 19; TEMP 96.8; O2SAT 99
[2023-08-16] MEDS ORDERED: BABY ASPIRIN 81 MG CHEW PO ONE (11:34)
[2023-08-16] MEDS ORDERED: Zofran 4 MG/2 ML VIAL IV ONE (11:34)
[2023-08-16] MEDS ORDERED: Sodium Chloride 0.9% 1000 ML 1,000 ML ONE (11:36)
[2023-08-16] MEDS ORDERED: BABY ASPIRIN 81 MG CHEW ONE (11:36)
[2023-08-16] MEDS ORDERED: Zofran 4 MG/2 ML VIAL ONE (11:36)
[2023-08-16 11:45] LABS: Absolute Neutrophil Ct (ANC) 4.15 x10^3/uL (1.4-6.9); BASOPHIL % 0.7 % (0.0-0.4); Basophil (Absolute #) 0.05 x10^3/uL (0-0.4); Eosinophil % 0.8 % (0.00-5.0); Eosinophil (Absolute #) 0.06 x10^3/uL (0-0.5); Hematocrit 41.9 % (35-47); Hemoglobin 13.8 g/dL (12.0-16.0); IMMATURE GRAN # 0.08 x10^3u/L (0.00-0.03); IMMATURE GRAN % 1.1 % (0.00-0.4); Lymphocyte (Absolute #) 2.45 x10^3/uL (1.0-4.6); Lymphocytes % 33.1 % (24.0-44.0); Mean Cell Volume 97.2 fL (78-100); Mean Corpuscular Hgb Concent. 32.9 g/dL (32-36); Mean Platelet Volume 9.4 fL (7.5-11.0); Monocyte (Absolute #) 0.62 x10^3/uL (0.0-1.3); Monocytes % 8.4 % (0.0-12.0); Neutrophil % 55.9 % (36.0-66.0); Platelet Count 255 x10^3/uL (150-450); Red Blood Count 4.31 x10^6/uL (4.1-5.4); Red Cell Distribution Width 11.3 % (11.5-14.0); White Blood Count 7.4 x10^3/uL (4.0-10.5)
[2023-08-16] MEDS ORDERED: Sodium Chloride 0.9% 1000 ML 1,000 ML IV SCH (11:45)
--- NOTE | 2023-08-16 11:53 | ERPHSYRPT ---
- History of Present Illness Time Seen by Provider: 08/16/23 11:20 Source: patient, family, EMS Exam Limitations: no limitations Patient Subjective Stated Complaint: pt had a syncopal episode and became unresponsive and was lowered to the ground, pt had agonal breathing and pinpoint eyes, pt was out for approx 45 seconds before coming to and then became nauseated Triage Nursing Assessment: Pt brought to the ER via EMS, hypertensive, denies pain, body is cool but pt is hot, pulses normal, denies cardiac hx, no difficulty breathing Physician History: 78 years old female with history of hyperlipidemia presented in the ER via EMS with chief complaint of syncopal episode while she was at a [facility]. Patient reports she was standing outside, started to feel dizzy lightheaded and slowly went down, her was able to hold her and she was unconscious for almost 45 seconds to a minute. No seizure-like activity noticed. She did had pinpoint pupils though per EMS. She was nauseated afterward but no vomiting. Denies any chest pain palpitations or shortness of breath. Reports feeling weak all over. Denies any visual disturbance or difficulty speech. No numbness tingling or focal weakness. EKG on presentation shows some ST elevation in lead II but no other elevations or reciprocal changes. Patient has nonfocal neuro exam throughout her stay in the ER. Lungs bilateral clear to auscultation. We have faxed EKG to [facility], discussed with Dr. Medrano, reviewed history and EKG findings, agreed with transfer. I have discussed the plan with patient and family who understand and agree with it. 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[employer]: [employer] - Vaccination Dates Date of 2cond Vaccination (if applicable): December 2020 - Past Medical History Pertinent Past Medical History: Yes Neurological History: No Pertinent History ENT History: No Pertinent History Cardiac History: High Cholesterol Respiratory History: No Pertinent History Endocrine Medical History: No Pertinent History Musculoskeletal History: No Pertinent History GI Medical History: No Pertinent History History: No Pertinent History Psycho-Social History: No Pertinent History Female Reproductive Disorders: No Pertinent History Other Medical History: OSTEOPENIA - Past Surgical History Past Surgical History: No Neuro Surgical History: No Pertinent History Cardiac: No Pertinent History Respiratory: No Pertinent History Gastrointestinal: No Pertinent History Genitourinary: No Pertinent History Musculoskeletal: No Pertinent History Female Surgical History: No Pertinent History - Social History Smoking Status: Never smoker Exposure to second hand smoke: Yes (30 years ago) Drug Use: none Patient Lives Alone: No - Review of Systems Constitutional: Fatigue, Weakness Eyes: No Symptoms Ears, Nose, & Throat: No Symptoms Respiratory: No Symptoms Cardiac: No Symptoms Abdominal/Gastrointestinal: No Symptoms Genitourinary Symptoms: No Symptoms Musculoskeletal: No Symptoms Skin: No Symptoms Neurological: Dizziness Psychological: No Symptoms Hematologic/Lymphatic: No Symptoms Physical Exam - Nursing Vital Signs Nursing Vital Signs: Initial Vital Signs Temperature 96.8 F 08/16/23 11:23 Pulse Rate 55 L 08/16/23 11:23 Respiratory Rate 19 08/16/23 11:23 Blood Pressure 171/81 08/16/23 11:23 O2 Sat by Pulse Oximetry 99 08/16/23 11:23 Pain Scale Pain Intensity 0 - Elzbieta Coma Scale Best Eye Response ([place]): (4) open spontaneously Best Verbal Response (Elzbieta): (5) oriented Best Motor Response ([place]eta): (6) obeys commands Elzbieta Total: 15 - Physical Exam General Appearance: no apparent distress, alert Eye Exam: bilateral eye: normal inspection, PERRL, EOMI Ears, Nose, Throat Exam: normal ENT inspection Neck Exam: normal inspection, non-tender, supple, full range of motion Respiratory: normal breath sounds, lungs clear Cardiovascular: normal heart sounds, bradycardia Gastrointestinal: soft, normal bowel sounds, No tenderness Back Exam: normal inspection Extremity Exam: normal inspection, normal range of motion Mental Status: alert, oriented x 3, 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 Exam: normal hearing, normal speech, PERRL Coordination/Gait: normal finger to nose, normal cerebellar function Motor/Sensory: no motor deficit, no sensory deficit, no pronator drift, negative Babinski's sign DTR: bicep (R): 2+, bicep (L): 2+, knee (R): 2+, knee (L): 2+ Skin Exam: normal color SpO2 Interpretation: normal SpO2: 99 O2 Delivery: Room Air - Course EKG Interpreted by Me: RATE (52), Sinus Tio, NORMAL AXIS, NORMAL INTERVALS, ST Elev Ordered Tests: Active Orders 24 hr Category Date Time Status Advanced Practice Registered Nurse STAT Care 08/16/23 11:33 Completed EKG-ER Only STAT Care 08/16/23 11:33 Completed IV Insertion STAT Care 08/16/23 11:33 Completed IV Insertion-2nd Peripheral STAT Care 08/16/23 11:34 Completed CBC W DIFF Stat Lab 08/16/23 11:44 Completed CMP Stat Lab 08/16/23 11:44 Completed NT PRO BNPII Stat Lab 08/16/23 11:44 Completed TROPONIN Q4H Lab 08/16/23 11:44 Completed Medication Summary Discontinued Medications Generic Name Dose Route Start Last Admin Trade Name Freq PRN Reason Stop Dose Admin Aspirin 324 mg 08/16/23 11:34 08/16/23 11:38 Aspirin 81 Mg Tab.Chew PO 08/16/23 11:35 324 mg STAT ONE Administration Aspirin Confirm 08/16/23 11:36 Aspirin 81 Mg Tab.Chew Administered 08/16/23 11:37 Dose 324 mg .ROUTE .STK-MED ONE Sodium Chloride 1,000 mls @ 125 mls/hr 08/16/23 11:45 08/16/23 11:38 Sodium Chloride 0.9% 1000 Ml IV 09/15/23 11:44 125 mls/hr .Q8H CASIE Administration Sodium Chloride Confirm 08/16/23 11:36 Sodium Chloride 0.9% 1000 Ml Administered 08/16/23 11:37 Dose 1,000 mls @ ud .ROUTE .STK-MED ONE Ondansetron HCl 4 mg 08/16/23 11:34 08/16/23 11:39 Ondansetron Hcl 4 Mg/2 Ml Vial IV 08/16/23 11:35 4 mg STAT ONE Administration Ondansetron HCl Confirm 08/16/23 11:36 Ondansetron Hcl 4 Mg/2 Ml Vial Administered 08/16/23 11:37 Dose 4 mg .ROUTE .STK-MED ONE Lab/Rad Data: Laboratory Result Diagrams 08/16/23 11:44 08/16/23 11:44 Laboratory Results 08/16/23 08/16/2308/16/23 Range/Units 11:44 11:44 11:44 WBC 7.4 (4.0-10.5) x10^3/uL RBC 4.31 (4.1-5.4) x10^6/uL Hgb 13.8 (12.0-16.0) g/dL Hct 41.9 (35-47) % MCV 97.2 (78-100) fL MCH 32.0 (26-32) pg MCHC 32.9 (32-36) g/dL RDW 11.3 L (11.5-14.0) % Plt Count 255 (150-450) x10^3/uL MPV 9.4 (7.5-11.0) fL Gran % 55.9 (36.0-66.0) % Immature Gran % (Auto) 1.1 H (0.00-0.4) % Nucleat RBC Rel Count 0.0 (0.00-0.1) % Eos # (Auto) 0.06 (0-0.5) x10^3/uL Immature Gran # (Auto) 0.08 H (0.00-0.03) x10^3u/L Absolute Lymphs (auto) 2.45 (1.0-4.6) x10^3/uL Absolute Monos (auto) 0.62 (0.0-1.3) x10^3/uL Absolute Nucleated RBC 0.00 (0.00-0.01) x10^3u/L Lymphocytes % 33.1 (24.0-44.0) % Monocytes % 8.4 (0.0-12.0) % Eosinophils % 0.8 (0.00-5.0) % Basophils % 0.7 (0.0-0.4) % Absolute Granulocytes 4.15 (1.4-6.9) x10^3/uL Basophils # 0.05 (0-0.4) x10^3/uL Sodium 139 (137-145) mmol/L Potassium 4.5 (3.5-5.1) mmol/L Chloride 106 (98-107) mmol/L Carbon Dioxide 26 (22-30) mmol/L Anion Gap 12.1 (5-15) MEQ/L BUN 22 H (7-17) mg/dL Creatinine 0.96 (0.52-1.04) mg/dL Estimated GFR 61.3 ML/MIN Glucose 127 H (74-106) mg/dL Calcium 9.8 (8.4-10.2) mg/dL Total Bilirubin 1.00 (0.2-1.3) mg/dL AST 28 (14-36) U/L ALT 18 (0-35) U/L Alkaline Phosphatase 56 (38-126) U/L Troponin I < 0.012 (0.000-0.034) ng/mL NT-Pro-B Natriuret Pep 298 (<300) pg/mL Serum Total Protein 7.2 (6.3-8.2) g/dL Albumin 4.4 (3.5-5.0) g/dL - Progress Progress: unchanged Progress Note: 08/16/23 11:52 78 years old female with history of hyperlipidemia presented in the ER via EMS with chief complaint of syncopal episode while she was at a [facility]. Patient reports she was standing outside, started to feel dizzy lightheaded and slowly went down, her was able to hold her and she was unconscious for almost 45 seconds to a minute. No seizure-like activity noticed. She did had pinpoint pupils though per EMS. She was nauseated afterward but no vomiting. Denies any chest pain palpitations or shortness of breath. Reports feeling weak all over. Denies any visual disturbance or difficulty speech. No numbness tingling or focal weakness. EKG on presentation shows some ST elevation in lead II but no other elevations or reciprocal changes. Patient has nonfocal neuro exam throughout her stay in the ER. Lungs bilateral clear to auscultation. We have faxed EKG to [facility], discussed with Dr. Medrano, reviewed history and EKG findings, agreed with transfer. I have discussed the plan with patient and family who understand and agree with it. Discussed with .: Other (Dr. 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
[2023-08-16 12:11] LABS: ALBUMIN 4.4 g/dL (3.5-5.0); ANION GAP 12.1 MEQ/L (5-15); Calcium 9.8 mg/dL (8.4-10.2); Creatinine 1 0.96 mg/dL (0.52-1.04); EST GLOMERULAR FILTRATION RATE 61.3 ML/MIN; Potassium 4.5 mmol/L (3.5-5.1); Total Protein 7.2 g/dL (6.3-8.2)
== END 2023-08-16 11:47 | disposition short-term general hospital (02) ==
LOC: ED 11:17
DX: R55 Syncope and collapse (principal); R11.0 Nausea; R53.1 Weakness; E78.5 Hyperlipidemia, unspecified; Z79.899 Other long term (current) drug therapy
CPT/HCPCS: 36000; 36415; 80053; 83880; 84484; 85025; 93005; 93041; 96374; 99284; J2405; A9270-GY

== ENCOUNTER 2025-05-06 15:17 | Emergency (ER) | payer MEDICARE, BC ==
[2025-05-06 15:24] VITALS: BP 201/89; PULSE 59; RESP 18; TEMP 97.4; O2SAT 98
--- NOTE | 2025-05-06 16:18 | ERPHSYRPT ---
- History of Present Illness Time Seen by Provider: 05/06/25 15:30 Source: patient Patient Subjective Stated Complaint: PT HERE FOR POSSIBLE HORNET STING TO LOWER LEGS AND ONE TO ABD, DID TAKE TYLENOL FOR PAIN. CO SOB Triage Nursing Assessment: PT ALERT, WALKED IN. RESP EASY, CHEST CLEAR, SKIN W.D.PT HAS INSECT STINGS TO LOWER LEGS AND TO ABD Physician History: This is a 79-year-old female who was mowing her lawn and went over her legs approximately 3 hours prior to my evaluation. Patient found some "tingling" in her throat initially which is resolved. Patient having pain from her stings. Last tetanus was less than 10 years ago no chest pain. No shortness of breath Allergies/Adverse Reactions: No Known Drug Allergies Allergy (Verified 05/06/25 15:23) Home Medications: Simvastatin 20Mg [Zocor 20Mg] 20 mg PO HS 01/07/22 [History] Hx Influenza Vaccination/Date Given: Yes Hx Pneumococcal Vaccination/Date Given: Yes Immunizations Up to Date: Yes Travel Risk - International Travel Have you traveled outside of the country in past 3 weeks: No - Emerging Infectious Disease Are you exhibiting symptoms associated with any current EIDs: No - Review of Systems All Other Systems: Reviewed and Negative (See HPI) - Past Medical History Pertinent Past Medical History: Yes Neurological History: No Pertinent History ENT History: No Pertinent History Cardiac History: High Cholesterol Respiratory History: No Pertinent History Endocrine Medical History: No Pertinent History Musculoskeletal History: No Pertinent History GI Medical History: No Pertinent History History: No Pertinent History Psycho-Social History: No Pertinent History Female Reproductive Disorders: No Pertinent History Other Medical History: OSTEOPENIA - Past Surgical History Past Surgical History: No Neuro Surgical History: No Pertinent History Cardiac: No Pertinent History Respiratory: No Pertinent History Gastrointestinal: No Pertinent History Genitourinary: No Pertinent History Musculoskeletal: No Pertinent History Female Surgical History: No Pertinent History - Social History Smoking Status: Never smoker Exposure to second hand smoke: Yes (30 years ago) Drug Use: none - Social Determinants of Health Will the patient participate in the screening: Declined to provide - Nursing Vital Signs Nursing Vital Signs: Initial Vital Signs Temperature 97.4 F 05/06/25 15:23 Pulse Rate 59 L 05/06/25 15:23 Respiratory Rate 18 05/06/25 15:23 Blood Pressure 201/89 05/06/25 15:23 O2 Sat by Pulse Oximetry 98 05/06/25 15:23 Pain Scale Pain Intensity 8 - Physical Exam SpO2: 98 Comments: 05/06/25 16:16 General: Well-nourished well-developed. No apparent distress. HEENT: Normocephalic atraumatic no obvious facial or neck deformity or injury. Oropharynx patent. No erythema. CV: RRR NL Perfusion. No edema Resp: No Respiratory distress or adventitious breath sounds. No wheezes, stridor, rhonchi or rales. Abd: ND SNT MSK: No deformity or TTP Skin: Approximately 5 superficial punctate areas where there were stains on bilateral legs. No erythema or edema. Neuro: Alert and [place] x4. No focal neurologic changes Psych: No SI, HI or grave disability 05/06/25 16:17 - Progress Progress Note: 05/06/25 16:17 No significant swelling. No evidence of airway compromise. No wheezing. No infection. Tetanus is up-to-date. 05/06/25 16:17 - Departure Departure Disposition: Home Clinical Impression: Sting from hornet, wasp, or bee Condition: Stable Critical Care Time: No Referrals: JOSE F SANDHU NP [Primary Care Provider, [facility]] - Follow up/PCP as directed Instructions: Insect Bites and Stings (DC) Additional Instructions: You have been evaluated for an emergency medical condition. At this time, given the current history and events presented, the examination conducted and any possible testing you may have had, you have been given a presumptive diagnosis based on the current information is obtained. Your discharge diagnosis is presumptive and not necessarily definitive. Medical conditions present in various stages very often without all the symptoms or findings described in medical literature. Other symptoms, concerns or conditions may arise and your diagnoses may evolve or change and/or your condition could potentially worsen after the time of disposition or discharge. You have been given a presumptive diagnosis and your condition appears to be stable, but your medical issues can change or worsen. If there is worsening of your condition including difficulty breathing, swallowing, speaking, chest pain or pressure, intractable vomiting, worsening or changing mental status, numbness, tingling or weakness of your body or arms or legs, thoughts or plans of harming yourself or others, or any other concerns, call 911 and/or return immediately to the closest emergency department. It is important you follow-up with your doctor on the next business day. Call your doctor, or the referral provided if you do not have a doctor, when they open to schedule a follow-up appointment in the next 1 or latest 2 days. Please refer to the attached sheet. If you do not have primary care doctor, you can call the [facility] referral line at [phone]. Return immediately if your symptoms worsen or if you are unable to obtain further care. My team and I thank you for choosing the [facility] Emergency Department emergency healthcare needs. We wish you a speedy recovery. Very respectfully, Dr. Lola Castle M.D. [place] Board-certified Emergency Physician
[2025-05-06] MEDS ORDERED: BENADRYL 25 MG CAPSULE PO ONE (16:19)
[2025-05-06] MEDS ORDERED: NORCO 5/325 MG PO ONE (16:19)
[2025-05-06] MEDS ORDERED: MOTRIN 600 MG PO ONE (16:20)
[2025-05-06] MEDS ORDERED: NORCO 5/325 MG ONE (16:22)
[2025-05-06] MEDS ORDERED: BENADRYL 25 MG CAPSULE ONE (16:22)
== END 2025-05-06 16:34 | disposition home or self-care (01) ==
LOC: ED 15:17
DX: S80.862A Insect bite (nonvenomous), left lower leg, initial encounter (principal); S80.861A Insect bite (nonvenomous), right lower leg, initial encounter; W57.XXXA Bitten or stung by nonvenomous insect and other nonvenomous arthropods, initial encounter; Y93.H2 Activity, gardening and landscaping; Y92.007 Garden or yard of unspecified non-institutional (private) residence as the place of occurrence of the external cause; Z79.899 Other long term (current) drug therapy